=== PATIENT | male | born 1965 | race Hispanic/Latino ===

== ENCOUNTER 2017-02-12 06:41 | Day surgery (SDC) | payer MEDICAID ==
[2017-02-12 07:05] VITALS: BMI 28.2
[2017-02-12 07:19] VITALS: RESP 19
[2017-02-12] MEDS ORDERED: Propofol 10 mg/ml Inj (20 ML) ONE (08:12)
[2017-02-12] MEDS ORDERED: Lactated Ringer's 1,000 ML IV ONE (08:20)
--- NOTE | 2017-02-12 08:24 | CP.SDSHP ---
Same Day Surgery H & P - History Proposed Procedure: colonoscopy Pre-Op Diagnosis: polyps., constipation - Previous Medical/Surgical History Cardiac: Hypertension - Allergies Allergies: Allergies No Known Allergies Allergy (Verified 02/12/16 08:35) - Physical Exam Vital Signs: Vital Signs 02/12/17 07:05 Temperature 97 F L Pulse Rate 66 Respiratory 19 Rate Blood Pressure 123/82 O2 Sat by Pulse 98 Oximetry Mental Status: Alert & Oriented x3 Neuro: WNL Heart: WNL Lungs: WNL GI: WNL - {Optional Preform as Required} Abdomen: WNL - Impression Impression: polyps Pt. Evaluated Today:Candidate for Anesthesia & Procedure: Yes - Date & Time Date: 02/12/17 Time: 08:23 Short Stay Discharge - Short Stay Discharge Admitting Diagnosis/Reason for Visit: COLONIC POLYPS Disposition: HOME/ ROUTINE
[2017-02-12 09:54] VITALS: TEMP 97.3
[2017-02-12 14:57] VITALS: BP 122/79; PULSE 79; O2SAT 96
== END 2017-02-12 14:02 | disposition home or self-care (01) ==
LOC: C.ENDO 06:41
PROVIDERS: ATTEND Internal Medicine Gastroenterology
DX: K62.1 Rectal polyp (principal); K59.00 Constipation, unspecified
CPT/HCPCS: 45388; 88305; J2704; J7120